=== PATIENT | male | born 1955 | race African-American/Black ===

== ENCOUNTER 2021-02-17 15:50 | Emergency (ER) | payer OTHER ==
[~2021-02-17] VITALS: Ht 185.4 cm; Wt 150.0 kg
[2021-02-17 15:57] VITALS: BP 124/78
[2021-02-17] MEDS ORDERED: NITROGLYCERIN 0.4MG TABLET SL SL PRN (17:30)
[2021-02-17] MEDS: ASPIRIN 81MG TABLET PO ONE ×2 (17:35→17:50)
[2021-02-17] MEDS ORDERED: ASPIRIN 81MG TABLET PO NR (17:40)
[2021-02-17 18:18] LABS: BASOPHILS % 0.6 % (0.0-2.0); EOSINOPHILS % 2.7 % (0.0-5.0); HEMATOCRIT. 48.1 % (42.0-52.0); HEMOGLOBIN. 15.3 g/dL (14.0-18.0); LYMPHOCYTES % 23.9 % (20.0-50.0); MEAN CORPUSCULAR VOLUME 78.6 fL (80.0-94.0); MEAN PLATELET VOLUME 8.2 fl (7.4-10.4); MONOCYTES % 7.9 % (2.0-8.0); NEUTROPHILS % 64.9 % (40.0-76.0); PLATELET 249 x1000/uL (130-400); RED BLOOD CELL COUNT 6.11 mill/uL (4.7-6.1)
[2021-02-17 18:25] LABS: CHLORIDE 105 mEq/L (98-107)
== END 2021-02-17 20:27 | disposition home or self-care (01) ==
LOC: ER 15:50 → CANBEDREQ 22:01
DX: R07.89 Other chest pain (principal); I10 Essential (primary) hypertension
CPT/HCPCS: 36415; 71045; 80053; 83880; 84484; 85025; 93005; 99291; Z7610